=== PATIENT | male | born 2000 | race Caucasian/White ===

== ENCOUNTER 2018-05-31 21:23 | Emergency (ER) | payer OTHER, SELFPAY ==
[2018-05-31 21:24] VITALS: BP 113/69; PULSE 65; RESP 15; TEMP 36.9; BMI 25.1
--- NOTE | 2018-05-31 22:41 | EKG12_ITS ---
Test Reason : SYNCOPE Blood Pressure : / mmHG Vent. Rate : 061 BPM Atrial Rate : 061 BPM P-R Int : 158 ms QRS Dur : 094 ms QT Int : 404 ms P-R-T Axes : 063 043 005 degrees QTc Int : 406 ms Normal sinus rhythm Normal ECG Confirmed by LAURA QUINONEZ, ASHLEY ([id number]), features editor MINI KERN ([id number]) on 06/02/2018 3:42:25 PM Referred By: FAWAD Confirmed By:ASHLEY SANCHEZ MD
--- NOTE | 2018-05-31 22:54 | ED.VISSUMM ---
- ER Visit Summary Date of Service: 05/31/18 Chief Complaint: Syncope History of Present Illness: The patient is a 17 M presenting for evaluation secondary to a syncopal episode. Patient states over the course last 2-3 days he has been dealing with a sore throat and subjective fevers. Denies any presence of cough. Denies any abdominal pain nausea vomiting chest pain or any other associated symptoms. Patient states that today he was actually starting to feel better as far as his sore throat and fevers. He states that he was lying in his room this evening, and had a intense abdominal cramping type feeling as if he had to go to the bathroom urgently. Patient states that he then stood up and passed out. This was unwitnessed. Denies that there was any sort of preceding chest pain shortness of breath visual changes numbness or weakness. He has never had any prior similar episodes in the past. Physical Examination: Vital signs are within normal limits, patient is afebrile. General: Patient is well-nourished well-developed and in no acute distress. Head: Normocephalic, atraumatic Eyes: Pupils equal round and reactive bilaterally, extra occular motion intact bialterally ENT: Moist mucous membranes Neck: Supple, no lymphadenopathy, no JVD, no meningismus CVS: Heart regular rate and rhythm, no murmurs, rubs or gallops, radial pulses 2+ bilaterally Resp: Respirations nondistressed, lung sounds clear bilaterally Abdomen: Soft, nontender, nondistended, no palpable masses, normal bowel sounds Back: Nontender Extremities: Nontender, atraumatic, active full range of motion, no peripheral edema Skin: warm, no rashes, no petechia Neuro: Alert and oriented x 4, CN 2-12 intact, no lateralizing neurological defecits Psyc: Normal affect Test Results: Sinus rhythm at [address] segments normal T waves. Normal OR and QTc intervals. No evidence of WPW or Brugada morphology. Emergency Department Course and Treatment: Patient presented for evaluation secondary to syncope. He has a normal physical exam and normal EKG. The history that the patient gives is very consistent with a vagal event. He gives no DVT or PE risk factors. Likewise, his pharyngitis is not associated with a fever anymore he has no exudates and I believe he needs tested or treated for strep. Patient was reassured by these findings, and was discharged in stable condition. Disposition: Discharge Impression: 1. Vasovagal syncope 2. Pharyngitis This note was generated with [employer] dictation software. It may contain incorrect words, spelling, and punctuation that were not noted in review of the chart prior to signing ED Disposition - Plan for ED Patient: Disposition: Home or Assisted Living Chief Complaint: Syncope Diagnosis: Vasovagal syncope Instructions: ED Syncope Vasovagal Referrals: Town Doctor,Out of [Primary Care Provider] - As Needed
[2018-05-31 22:59] VITALS: BP 126/76; PULSE 89; RESP 16; O2SAT 98
== END 2018-05-31 23:02 | disposition home or self-care (01) ==
PROVIDERS: Emergency Provider Emergency Medicine
DX: R55 Syncope and collapse (principal); J02.9 Acute pharyngitis, unspecified; R50.9 Fever, unspecified; R10.9 Unspecified abdominal pain; Z72.0 Tobacco use
CPT/HCPCS: 93005; 99282

== ENCOUNTER → 2019-06-16 13:00 | Outpatient (CLI) | payer OTHER, SELFPAY ==
[2019-06-16 13:44] LABS: Color, Urine Yellow (Yellow); Glucose, Dipstick Normal (Normal); Ketone-Dipstick Negative (Negative); Leukocyte Esterase-Dipstick Negative /ul (Negative); Nitrite-Dipstick Negative (Negative); Occult Blood-Urine Negative /ul (Negative); Protein-Dipstick 15 mg/dl (Negative); Urine Bilirubin Dipstick Negative (Negative); Urine Clarity Clear (Clear); Urine Urobilinogen Normal (Normal); Urine pH 6.5 (5.0 - 8.0)
[2019-06-16 13:48] LABS: Erythrocyte Sedimentation Rate 10 mm/hr (0-15)
[2019-06-16 13:50] LABS: Absolute Lymphocyte Count 1.46 X10^3/uL (0.83-4.51); Absolute Neutrophil Count 4.1 X10^3/uL (2.0-7.7); Basophil# 0.05 X10^3/uL; Basophil% 0.8 % (0-1); Eosinophil# 0.07 X10^3/uL; Eosinophils% 1.1 % (0-5); Hematocrit 46.4 % (40-54); Hemoglobin 15.3 g/dL (13.0-16.5); Lymphocyte # 1.46 X10^3/ul (4.0); Lymphocyte % 23.2 % (19-41); Mean Corpuscular Hgb 31.9 pg (27.0-32.0); Mean Corpuscular Volume 96.7 fL (80-94); Mean Platelet Vol. 9.6 fl (6.2-12.0); Monocyte# 0.56 X10^3/uL; Monocyte% 8.9 % (0-10); NRBC Flagged by Analyzer 0 % (0-5); Neutrophil # 4.13 X10^3/uL (2.7-7.7); Neutrophil % 65.8 % (47-70); Platelet Count 292 K/mm3 (150-450); RBC Distribution Width CV 12.6 % (11.6-14.6); RBC Distribution Width SD 45.3 fl (35.1-43.9); White Blood Count 6.3 K/mm3 (4.4-11.0)
[2019-06-16 14:23] LABS: Vitamin B12 542 pg/mL (211-911)
[2019-06-16 14:32] LABS: ALB/GLOB Ratio 1.1 RATIO (0.9-2.4); AST(SGOT) 16 U/L (15-37); Alanine Aminotransfer ALT/SGPT 49 U/L (16-61); Albumin, Serum 4.2 g/dL (3.2-5.0); Alkaline Phosphatase 133 U/L (45-117); Anion Gap 5 (5-15); BUN 14 mg/dL (7-18); BUN/Creat Ratio 13.3 RATIO (10-20); CRP < 2.90 mg/L (0.0-3.0); Chloride 106 mmol/L (98-107); Creatinine, Serum 1.05 mg/dL (0.70-1.30); EST Glomerular Filtration Rate 95 mL/min (>60); Est Glom Filt Rate - Afr Amer 115 mL/min (>60); Globulin 3.8 g/dL (2.2-4.2); Glucose 91 mg/dL (74-106); Magnesium 2.3 mg/dL (1.6-2.6); Potassium 4.2 mmol/L (3.5-5.1); Sodium Level 141 mmol/L (136-145); Thyroid Stim Hormone (TSH) 1.23 uIU/mL (0.358-3.74)
== END ==
PROVIDERS: Referring Provider Family Medicine; Visit Provider Family Medicine
DX: R51 Headache (principal); R41.0 Disorientation, unspecified
CPT/HCPCS: 36415; 80053; 81002; 82607; 83735; 84443; 85025; 85652; 86140